=== PATIENT | female | born 2000 | race Caucasian/White ===

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

== ENCOUNTER 2021-05-28 22:35 | Emergency (ER) | payer OTHER ==
[~2021-05-28 22:35] MED LIST: LIDOCAINE PATCH REMOVAL MC SCH
[2021-05-28 22:41] VITALS: PULSE 89; TEMP 98.8; BMI 23.6
[2021-05-28] MEDS ORDERED: ACETAMINOPHEN 1000 MG/100 ML VIAL (NON FORMULARY) IVPB ONE (23:29)
[2021-05-28] MEDS ORDERED: LIDOCAINE 5% TOPICAL PATCH TP ONE (23:29)
[2021-05-28] MEDS ORDERED: ACETAMINOPHEN INJECTION 100 ML IVPB ONE (23:43)
[2021-05-28] MEDS ORDERED: LIDOCAINE 5% TOPICAL PATCH ONE (23:44)
[2021-05-28 23:45] LABS: HEMATOCRIT 42.2 % (32.4-45.2); HEMOGLOBIN 14.3 GM/dL (10.7-15.3); MCH 30.9 pg (25.7-33.7); MEAN CELL VOLUME 90.7 fl (80-96); RBC 4.65 M/mm3 (3.60-5.2); WHITE BLOOD COUNT 7.1 K/mm3 (4.0-10.0)
[2021-05-28 23:46] LABS: BASO % 0.6 % (0-2.0); EOS % 0.9 % (0-4.5); LYMPH % 44.9 % (8-40); MEAN PLT VOLUME 7.1 fl (7.5-11.1); MONO % 8.1 % (3.8-10.2); NEUT % 45.5 % (42.8-82.8); PLATELET COUNT 274 10^3/uL (134-434); RDW 13.7 % (11.6-15.6)
[2021-05-29 00:29] LABS: BLOOD UREA NITROGEN 13.5 mg/dL (7-18)
[2021-05-29 00:30] LABS: ALBUMIN 3.9 g/dl (3.4-5.0); BILIRUBIN,TOTAL 0.5 mg/dL (0.2-1); CALCIUM 9.3 mg/dL (8.5-10.1); CREATININE 0.9 mg/dL (0.55-1.3); TOT PROT 7.4 g/dl (6.4-8.2)
[2021-05-29 01:02] LABS: ACTIVATED PTT 29.3 SECONDS (25.2-36.5); INR 1.08 (0.83-1.09); PROTHROMBIN TIME (PATIENT) 13.3 SEC (9.7-13.0)
[2021-05-29 03:42] VITALS: BP 121/86
== END 2021-05-29 03:43 | disposition home or self-care (01) ==
LOC: JER 22:35
PROC: 3E0333Z Introduction of Anti-inflammatory into Peripheral Vein, Percutaneous Approach (ICD-10-PCS; principal; 2021-05-28)
DX: S00.93XA Contusion of unspecified part of head, initial encounter (principal); M25.461 Effusion, right knee; S40.021A Contusion of right upper arm, initial encounter; V49.50XA Passenger injured in collision with unspecified motor vehicles in traffic accident, initial encounter
CPT/HCPCS: 36415; 70450-TC; 71260-TC; 72125-TC; 73030-TC-RT-FY; 73060-TC-RT-FY; 73562-TC-RT-FY; 74177-TC; 80053; 84703; 85025; 85610; 85730; 86850; 86900; 86901; 99285-25; J0131; Q9967

== ENCOUNTER 2021-10-17 21:17 | Emergency (ER) | payer OTHER ==
[2021-10-17 21:32] VITALS: BP 111/74; PULSE 90; TEMP 98.4; BMI 23.9
[2021-10-17] MEDS ORDERED: ACETAMINOPHEN 650 MG/20.3 ML ORAL SOLUTION (CUPS) PO ONE (22:11)
== END 2021-10-17 22:34 | disposition home or self-care (01) ==
LOC: JER 21:17 → JERFT 21:17
DX: S00.03XA Contusion of scalp, initial encounter (principal); W17.89XA Other fall from one level to another, initial encounter; Y93.A5 Activity, obstacle course
CPT/HCPCS: 99283-25

== ENCOUNTER 2022-01-13 00:37 | Emergency (ER) | payer OTHER ==
[2022-01-13 00:59] VITALS: BMI 23.9
[2022-01-13] MEDS ORDERED: morphine CARPU-JECT 2 MG/1 ML DISP.SYRIN IVPUSH ONE (02:16)
[2022-01-13 02:30] LABS: BASO % 0.4 % (0-2.0); EOS % 0.5 % (0-4.5); HEMATOCRIT 43.6 % (32.4-45.2); HEMOGLOBIN 14.7 GM/dL (10.7-15.3); LYMPH % 31.4 % (8-40); MCH 30.6 pg (25.7-33.7); MCHC 33.7 g/dl (32.0-36.0); MEAN CELL VOLUME 90.7 fl (80-96); MONO % 8.7 % (3.8-10.2); PLATELET COUNT 249 10^3/uL (134-434); RBC 4.81 M/mm3 (3.60-5.2); RDW 13.1 % (11.6-15.6); WHITE BLOOD COUNT 8.9 K/mm3 (4.0-10.0)
[2022-01-13] MEDS ORDERED: ONDANSETRON 4 MG/2 ML VIAL IVPUSH ONE (02:32)
[2022-01-13] MEDS ORDERED: ONDANSETRON 4 MG/2 ML VIAL ONE (02:33)
[2022-01-13 02:40] LABS: INR 1.11 (0.83-1.09); PROTHROMBIN TIME (PATIENT) 12.8 SEC (9.7-13.0)
[2022-01-13 02:42] LABS: ACTIVATED PTT 31.1 SECONDS (25.2-36.5)
[2022-01-13 02:50] LABS: CALCIUM 8.9 mg/dL (8.5-10.1); MAGNESIUM 2.4 mg/dL (1.8-2.4)
[2022-01-13 02:51] LABS: BLOOD UREA NITROGEN 9.4 mg/dL (7-18)
[2022-01-13 02:54] LABS: CREATININE 0.7 mg/dL (0.55-1.3)
[2022-01-13 02:55] LABS: BILIRUBIN,TOTAL 0.5 mg/dL (0.2-1); TOT PROT 7.2 g/dl (6.4-8.2)
[2022-01-13 03:36] VITALS: TEMP 97.6
[2022-01-13] MEDS ORDERED: SODIUM CHLORIDE 0.9% 500 ML INFUS.BAG IV ONE (03:37)
[2022-01-13] MEDS ORDERED: KETOROLAC TROMETHAMINE 15 MG/ML VIAL IVPUSH ONE (04:03)
[2022-01-13] MEDS ORDERED: KETOROLAC TROMETHAMINE 15 MG/ML VIAL ONE (04:05)
[2022-01-13 04:17] LABS: PH,URINE 5.5 (5.0-8.0); URINE APPEARANCE CLEAR; URINE BILIRUBIN NEGATIVE (NEGATIVE); URINE COLOR YELLOW; URINE GLUCOSE (UA) NEGATIVE (NEGATIVE); URINE KETONE 2+ (NEGATIVE); URINE LEUK ESTERASE NEGATIVE (NEGATIVE); URINE NITRITE NEGATIVE (NEGATIVE); URINE PROTEIN NEGATIVE (NEGATIVE); URINE UROBILINOGEN 0.2 mg/dL (0.2-1.0)
[2022-01-13 04:19] LABS: HCG,QUALITATIVE URINE Negative
== END 2022-01-13 05:43 | disposition home or self-care (01) ==
LOC: JER 00:37
PROC: 3E0333Z Introduction of Anti-inflammatory into Peripheral Vein, Percutaneous Approach (ICD-10-PCS; principal; 2022-01-13)
PROC: 3E033NZ Introduction of Analgesics, Hypnotics, Sedatives into Peripheral Vein, Percutaneous Approach (ICD-10-PCS; 2022-01-13)
PROC: 3E033GC Introduction of Other Therapeutic Substance into Peripheral Vein, Percutaneous Approach (ICD-10-PCS; 2022-01-13)
DX: R19.09 Other intra-abdominal and pelvic swelling, mass and lump (principal)
CPT/HCPCS: 36415; 74176-TC; 76830-TC; 80053; 81003; 83735; 84703; 85025; 85610; 85730; 86850; 86900; 86901; 87086; 99285-25

== ENCOUNTER 2023-02-16 04:28 | Day surgery (SDC) | payer OTHER ==
[2023-02-14 11:24] VITALS: BMI 23.0
[2023-02-16] MEDS ORDERED: PROPOFOL 20 ML ONE ×2 (11:56→12:52)
[2023-02-16] MEDS ORDERED: MIDAZOLAM HCL 2 MG/2 ML SINGLE DOSE VIAL ONE (11:57)
[2023-02-16] MEDS ORDERED: SUCCINYLCHOLINE CHLORIDE 200 MG/10 ML SYRINGE ONE (12:49)
[2023-02-16] MEDS ORDERED: LACTATED RINGERS SOLUTION 1,000 ML IV SCH (13:15)
[2023-02-16] MEDS ORDERED: ONDANSETRON 4 MG/2 ML VIAL IVPUSH PRN (13:15)
[2023-02-16 14:55] VITALS: RESP 20
[2023-02-16 17:20] VITALS: BP 90/56; PULSE 82; TEMP 98
== END 2023-02-16 16:15 | disposition home or self-care (01) ==
LOC: JASU-SURG 04:28
PROVIDERS: ATTEND Student in an Organized Health Care Education/Training Program
PROC: 0UPD8HZ Removal of Contraceptive Device from Uterus and Cervix, Via Natural or Artificial Opening Endoscopic (ICD-10-PCS; principal; 2023-02-16 11:00)
DX: T83.89XA Other specified complication of genitourinary prosthetic devices, implants and grafts, initial encounter (principal)
CPT/HCPCS: 81025; 88300-TC; 94760

== ENCOUNTER 2023-08-03 09:46 | Emergency (ER) | payer OTHER ==
[2023-08-03 09:52] VITALS: RESP 18; BMI 23.0
[2023-08-03] MEDS ORDERED: SODIUM CHLORIDE 0.9% 500 ML INFUS.BAG IV ONE (10:14)
[2023-08-03] MEDS ORDERED: ACETAMINOPHEN 1000 MG/100 ML BAG IVPB ONE (10:14)
[2023-08-03] MEDS ORDERED: ONDANSETRON 4 MG/2 ML VIAL IVPUSH ONE (10:14)
[2023-08-03] MEDS ORDERED: ACETAMINOPHEN INJECTION 100 ML IVPB ONE (10:39)
[2023-08-03] MEDS ORDERED: ONDANSETRON 4 MG/2 ML VIAL ONE (10:39)
[2023-08-03 10:43] LABS: PH,URINE 8.5 (5.0-8.0); URINE APPEARANCE CLEAR; URINE BILIRUBIN NEGATIVE (NEGATIVE); URINE COLOR YELLOW; URINE GLUCOSE (UA) NEGATIVE (NEGATIVE); URINE KETONE NEGATIVE (NEGATIVE); URINE LEUK ESTERASE NEGATIVE (NEGATIVE); URINE NITRITE NEGATIVE (NEGATIVE); URINE PROTEIN NEGATIVE (NEGATIVE); URINE UROBILINOGEN 0.2 mg/dL (0.2-1.0)
[2023-08-03] MEDS ORDERED: KETOROLAC TROMETHAMINE 30 MG/1 ML VIAL IVPUSH ONE (11:48)
[2023-08-03 11:59] VITALS: BP 103/69; PULSE 102; TEMP 98.6
[2023-08-03 12:10] LABS: BASO % 0.2 % (0-2.0); EOS % 0.3 % (0-4.5); HEMATOCRIT 47.5 % (32.4-45.2); HEMOGLOBIN 15.5 GM/dL (10.7-15.3); MCH 30.2 pg (25.7-33.7); MCHC 32.7 g/dl (32.0-36.0); MEAN CELL VOLUME 92.4 fl (80-96); MEAN PLT VOLUME 7.8 fl (7.5-11.1); MONO % 4.9 % (3.8-10.2); NEUT % 87.6 % (42.8-82.8); PLATELET COUNT 265 10^3/uL (134-434); RBC 5.13 M/mm3 (3.60-5.2); RDW 12.5 % (11.6-15.6); WHITE BLOOD COUNT 11.6 K/mm3 (4.0-10.0)
[2023-08-03] MEDS ORDERED: KETOROLAC TROMETHAMINE 30 MG/1 ML VIAL ONE (12:10)
[2023-08-03 12:33] LABS: POTASSIUM 4.8 mmol/L (3.5-5.1)
[2023-08-03 12:36] LABS: ALBUMIN 4.1 g/dl (3.4-5.0); BLOOD UREA NITROGEN 14.6 mg/dL (7-18); CALCIUM 9.3 mg/dL (8.5-10.1)
[2023-08-03 12:39] LABS: CREATININE 0.7 mg/dL (0.55-1.3); TOT PROT 7.8 g/dl (6.4-8.2)
[2023-08-03 12:41] LABS: BILIRUBIN,TOTAL 0.8 mg/dL (0.2-1)
== END 2023-08-03 12:55 | disposition home or self-care (01) ==
LOC: JER 09:46
PROC: 3E033NZ Introduction of Analgesics, Hypnotics, Sedatives into Peripheral Vein, Percutaneous Approach (ICD-10-PCS; principal; 2023-08-03)
PROC: 3E033GC Introduction of Other Therapeutic Substance into Peripheral Vein, Percutaneous Approach (ICD-10-PCS; 2023-08-03)
PROC: 3E033GC Introduction of Other Therapeutic Substance into Peripheral Vein, Percutaneous Approach (ICD-10-PCS; 2023-08-03)
DX: R53.1 Weakness (principal); R10.2 Pelvic and perineal pain; E28.2 Polycystic ovarian syndrome
CPT/HCPCS: 36415; 76830-TC; 80053; 81003; 82962; 83690; 84703; 85025; 87086; 99284-25

== ENCOUNTER 2023-10-17 21:28 | Emergency (ER) | payer OTHER ==
[2023-10-17 21:45] VITALS: BMI 23.2
[2023-10-17] MEDS ORDERED: ONDANSETRON *ODT* 4 MG TABLET ONE (22:15)
[2023-10-17] MEDS ORDERED: ACETAMINOPHEN 650 MG/20.3 ML ORAL SOLUTION (CUPS) ONE (22:15)
[2023-10-17] MEDS: ONDANSETRON *ODT* 4 MG TABLET SL ONE (22:17)
[2023-10-17] MEDS: ACETAMINOPHEN 650 MG/20.3 ML ORAL SOLUTION (CUPS) PO ONE (22:17)
[2023-10-17] MEDS ORDERED: IBUPROFEN 100 MG/5 ML UNIT DOSE CUPS ONE (22:29)
[2023-10-17] MEDS: IBUPROFEN 100 MG/5 ML UNIT DOSE CUPS PO ONE (22:31)
[2023-10-17] MEDS ORDERED: AMOX TR/POTASSIUM CLAVULANATE 600 MG/5 ML PO ONE (23:26)
[2023-10-17 23:38] VITALS: BP 109/60; PULSE 91; RESP 18; TEMP 98.3
== END 2023-10-17 23:48 | disposition home or self-care (01) ==
LOC: JER 21:28
DX: R51.9 Headache, unspecified (principal); R09.81 Nasal congestion; R05.9 Cough, unspecified; R07.9 Chest pain, unspecified; R11.2 Nausea with vomiting, unspecified; R63.0 Anorexia; R50.9 Fever, unspecified; J10.1 Influenza due to other identified influenza virus with other respiratory manifestations; Z20.822 Contact with and (suspected) exposure to COVID-19
CPT/HCPCS: 0241U-QW; 71046-TC-FY; 84703; 99284-25; Q0162

== ENCOUNTER 2024-03-21 12:01 | Emergency (ER) | payer OTHER ==
[2024-03-21 12:20] VITALS: BP 102/68; PULSE 89; RESP 18; TEMP 98.2; BMI 23.3
[2024-03-21 13:22] LABS: PH,URINE 5.5 (5.0-8.0); URINE APPEARANCE CLEAR; URINE BILIRUBIN NEGATIVE (NEGATIVE); URINE COLOR YELLOW; URINE GLUCOSE (UA) NEGATIVE (NEGATIVE); URINE KETONE NEGATIVE (NEGATIVE); URINE LEUK ESTERASE NEGATIVE (NEGATIVE); URINE NITRITE NEGATIVE (NEGATIVE); URINE PROTEIN NEGATIVE (NEGATIVE)
[2024-03-21 13:25] LABS: HCG,QUALITATIVE URINE Negative
[2024-03-21] MEDS ORDERED: IBUPROFEN 600 MG TABLET (FP) PO ONE (13:59)
[2024-03-21] MEDS ORDERED: ONDANSETRON *ODT* 4 MG TABLET ONE (13:59)
[2024-03-21] MEDS: IBUPROFEN 600 MG TABLET (FP) PO ONE (14:06)
[2024-03-21] MEDS: ONDANSETRON *ODT* 4 MG TABLET SL ONE (14:06)
== END 2024-03-21 14:40 | disposition home or self-care (01) ==
LOC: JER 12:01
DX: R10.2 Pelvic and perineal pain (principal); R11.2 Nausea with vomiting, unspecified; R10.30 Lower abdominal pain, unspecified
CPT/HCPCS: 81003; 84703; 87077; 87086; 99283-25; Q0162

== ENCOUNTER 2024-09-07 01:02 | Emergency (ER) | payer OTHER ==
[2024-09-07 01:08] VITALS: BP 107/60; PULSE 90; RESP 18; TEMP 98.2; BMI 25.1
[2024-09-07 01:49] LABS: EPI CELLS 26 /uL (0-25.1); HYALINE CASTS 0 /uL (0-3.1); PH,URINE 5.5 (5.0-8.0); URINE APPEARANCE CLEAR; URINE BACTERIA 503 /uL (0-1359); URINE BILIRUBIN NEGATIVE (NEGATIVE); URINE COLOR YELLOW; URINE GLUCOSE (UA) NEGATIVE (NEGATIVE); URINE KETONE 2+ (NEGATIVE); URINE LEUK ESTERASE TRACE (NEGATIVE); URINE NITRITE NEGATIVE (NEGATIVE); URINE PROTEIN NEGATIVE (NEGATIVE); URINE RBC 13 /uL (0-23.9); URINE UROBILINOGEN 0.2 mg/dL (0.2-1.0); URINE WBC 40 /uL (0-25.8)
[2024-09-07 01:50] LABS: HCG,QUALITATIVE URINE Negative
[2024-09-07] MEDS ORDERED: ACETAMINOPHEN INJECTION 100 ML ONE (01:56)
[2024-09-07] MEDS: ACETAMINOPHEN 1000 MG/100 ML BAG IVPB ONE (02:03)
[2024-09-07] MEDS: SODIUM CHLORIDE 0.9% 1000 ML INFUS.BAG IV STA (02:34)
== END 2024-09-07 03:24 | disposition home or self-care (01) ==
LOC: JER 01:02
PROC: 3E033NZ Introduction of Analgesics, Hypnotics, Sedatives into Peripheral Vein, Percutaneous Approach (ICD-10-PCS; principal; 2024-09-07)
DX: R11.2 Nausea with vomiting, unspecified (principal); R19.7 Diarrhea, unspecified; R42 Dizziness and giddiness; Z20.822 Contact with and (suspected) exposure to COVID-19
CPT/HCPCS: 0241U-QW; 81003; 84703; 99284-25; J0131

== ENCOUNTER 2024-09-23 20:25 | Emergency (ER) | payer OTHER ==
[2024-09-23 20:30] VITALS: BP 107/60; PULSE 95; RESP 18; TEMP 98.4; BMI 24.3
[2024-09-23] MEDS ORDERED: ACETAMINOPHEN INJECTION 100 ML ONE (21:02)
[2024-09-23] MEDS ORDERED: ONDANSETRON 4 MG/2 ML VIAL ONE (21:02)
[2024-09-23] MEDS: ACETAMINOPHEN 1000 MG/100 ML BAG IVPB ONE (21:12)
[2024-09-23] MEDS: ONDANSETRON 4 MG/2 ML VIAL IVPUSH ONE (21:13)
[2024-09-23] MEDS: LACTATED RINGERS SOLUTION 1000 ML INFUS.BAG IV ONE (21:13)
[2024-09-23 21:23] LABS: BASO % 0.2 % (0-2.0); EOS % 0.1 % (0-4.5); HEMATOCRIT 43.6 % (32.4-45.2); HEMOGLOBIN 14.7 GM/dL (10.7-15.3); MCH 30.8 pg (25.7-33.7); MCHC 33.7 g/dl (32.0-36.0); MEAN CELL VOLUME 91.5 fl (80-96); MEAN PLT VOLUME 7.3 fl (7.5-11.1); MONO % 8.4 % (3.8-10.2); NEUT % 81.3 % (42.8-82.8); PLATELET COUNT 211 10^3/uL (134-434); RBC 4.77 M/mm3 (3.60-5.2); RDW 12.9 % (11.6-15.6); WHITE BLOOD COUNT 8.1 K/mm3 (4.0-10.0)
[2024-09-23 21:30] LABS: INR 1.17 (0.83-1.09); PROTHROMBIN TIME (PATIENT) 12.9 SEC (9.7-13.0)
[2024-09-23 21:33] LABS: ACTIVATED PTT 28.9 SECONDS (25.2-36.5)
[2024-09-23 21:52] LABS: POTASSIUM 3.6 mmol/L (3.5-5.1)
[2024-09-23 21:53] LABS: ALBUMIN 3.8 g/dl (3.4-5.0)
[2024-09-23 21:54] LABS: BLOOD UREA NITROGEN 12.2 mg/dL (7-18)
[2024-09-23 21:57] LABS: CREATININE 0.7 mg/dL (0.55-1.3)
[2024-09-23 21:59] LABS: BILIRUBIN,TOTAL 1.3 mg/dL (0.2-1); TOT PROT 6.8 g/dl (6.4-8.2)
[2024-09-23 23:21] LABS: HCG,QUALITATIVE URINE Negative
[2024-09-23 23:32] LABS: PH,URINE 7.5 (5.0-8.0); URINE APPEARANCE CLEAR; URINE BILIRUBIN NEGATIVE (NEGATIVE); URINE COLOR YELLOW; URINE GLUCOSE (UA) NEGATIVE (NEGATIVE); URINE KETONE TRACE (NEGATIVE); URINE LEUK ESTERASE NEGATIVE (NEGATIVE); URINE NITRITE NEGATIVE (NEGATIVE); URINE PROTEIN NEGATIVE (NEGATIVE); URINE UROBILINOGEN 0.2 mg/dL (0.2-1.0)
== END 2024-09-23 23:43 | disposition home or self-care (01) ==
LOC: JER 20:25
PROC: 3E033NZ Introduction of Analgesics, Hypnotics, Sedatives into Peripheral Vein, Percutaneous Approach (ICD-10-PCS; principal; 2024-09-23)
PROC: 3E033GC Introduction of Other Therapeutic Substance into Peripheral Vein, Percutaneous Approach (ICD-10-PCS; 2024-09-23)
DX: N83.201 Unspecified ovarian cyst, right side (principal); N83.202 Unspecified ovarian cyst, left side; R10.30 Lower abdominal pain, unspecified; R11.2 Nausea with vomiting, unspecified
CPT/HCPCS: 36415; 74177-TC; 76830-TC; 80053; 81003; 83690; 83735; 84703; 85025; 85610; 85730; 87077; 87086; 99285-25; J0131; Q9967

== ENCOUNTER 2025-03-24 17:14 | Emergency (ER) | payer OTHER ==
[2025-03-24 17:38] VITALS: BP 110/72; PULSE 86; RESP 18; TEMP 97.8; BMI 24.4
[2025-03-24] MEDS ORDERED: ACETAMINOPHEN 325 MG TABLET (FP) ONE (18:22)
[2025-03-24] MEDS: ACETAMINOPHEN 325 MG TABLET (FP) PO ONE (18:26)
[2025-03-24 18:48] LABS: ABSOLUTE IMMATURE GRANULOCYTES 0.01 x10^3/uL (0.0-0.031); BASOPHILS # 0.03 x10^3/uL (0.01-0.08); EOSINOPHIL % 0.5 % (0.7-5.8); EOSINOPHILS # 0.04 x10^3/uL (0.04-0.36); MCHC 33.0 g/dl (32.2-35.5); MEAN CELL VOLUME 93.8 fl (79.4-94.8); MEAN PLT VOLUME 9.3 fl (9.4-12.3); MONOCYTE # 0.45 x10^3/uL (0.24-0.86); MONOCYTE % 5.5 % (4.7-12.5); RDW 12.4 % (12.1-16.5)
[2025-03-24 18:58] LABS: ALK PHOS 100.0 U/L (45-117); CO2 27.0 mmol/L (21-32); CREATININE 0.7 mg/dl (0.6-1.3); GLUCOSE,RANDOM 79.0 mg/dl (74-106); SGOT/AST 13.0 U/L (15-37); SGPT/ALT 11.0 U/L (7-52); TOT PROT 6.7 g/dl (6.4-8.2)
[2025-03-25 00:35] LABS: HCV DIAGNOSTIC IN-HOUSE W/RFLX NON-REACTIVE (NONREACTIVE)
[2025-03-25 00:40] LABS: HIV INTERPRETATION NEGATIVE (NEGATIVE)
== END 2025-03-24 19:35 | disposition home or self-care (01) ==
LOC: FER 17:14
DX: R10.2 Pelvic and perineal pain (principal); N93.8 Other specified abnormal uterine and vaginal bleeding
CPT/HCPCS: 36415; 76830-TC; 80053; 81003; 81015; 81025; 84443; 85025; 86803; 87389; 99284-25